=== PATIENT | male | born 1985 | race Caucasian/White ===

== ENCOUNTER 2020-08-19 22:03 | Emergency (ER) | payer SELFPAY ==
[~2020-08-19] VITALS: Ht 182.9 cm; Wt 79.5 kg
[2020-08-19 22:47] VITALS: TEMP 97.9
[2020-08-20 00:30] VITALS: BP 131/80; PULSE 89
== END 2020-08-20 00:20 | disposition home or self-care (01) ==
LOC: COL.ER 22:03
DX: S09.90XA Unspecified injury of head, initial encounter (principal); S01.01XA Laceration without foreign body of scalp, initial encounter; W18.09XA Striking against other object with subsequent fall, initial encounter